=== PATIENT | female | born 1985 | race American Indian/Alaskan Native ===

== ENCOUNTER 2019-09-03 21:58 | Emergency (ER) | payer MEDICAID, OTHER ==
[2019-09-03 23:02] VITALS: BP 139/80
== END 2019-09-04 02:00 | disposition left against medical advice (07) ==
LOC: ED 21:58
DX: R06.00 Dyspnea, unspecified (principal); Z53.21 Procedure and treatment not carried out due to patient leaving prior to being seen by health care provider